=== PATIENT | male | born 1940 | race Caucasian/White ===

== ENCOUNTER 2019-07-30 07:37 | Day surgery (SDC) | payer MEDICARE, SELFPAY ==
--- NOTE | 2019-07-28 14:02 | P.OP_ITS ---
Operative Date/Time/Diagnoses Date of procedure: 07/30/19 Time of procedure: 10:45 Procedure & Clinicians Procedure: Preoperative diagnoses: 1. Left nuclear sclerotic and cortical cataract. 2. Recent Mohs procedure of left anabaptism. 3. 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 4. 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 Postoperative diagnoses: 1. Cataract removed by phacoemulsification with placement of posterior chamber intraocular lens. Procedure: Phacoemulsification with posterior chamber intraocular lens implant Surgeon: Claritza Dinero MD Complications: None Specimen: None Implant: ZCBOO+22.0 Blood loss: None Anesthesia: Retrobulbar with monitored standby Description of procedure: Patient presents with a complaint of decreased vision due to cataract which is affecting activities of daily living. He is having difficulty with driving. The patient wants surgery to improve vision. He has significant lower lid scar tissue from previous resection of basal cell carcinoma. He has also had a recent Mohs procedure for a 2nd lesion to the left anabaptism with sutures recently removed. Both are stable. The patient was taken to the operating room and given IV sedation. A retrobulbar block consisting of 6 cc of 2% xylocaine without epinephrine mixed half and half with 0.5% Marcaine with 1 cc of hyaluronidase added is placed between the medial and lateral 1/3 of the inferior orbital rim. The eye is manually massaged for 30 sec, prepped using Betadine solution, and draped in the usual sterile fashion. The area of recent scar tissue was draped out of the field. Temporal approach was made, a 1 mm side-port incision was made 90? from the proposed clear corneal incision position. Phenylephrine 1.5% mixed with 1% xylocaine 0.2 cc was placed into the anterior chamber. Viscoat followed by Healstacia was then placed. A 2.6 mm clear incision with a 2.6 mm blade was placed. A 360 degree capsulorrhexis style capsulotomy was then performed with a cystitome needle on a Mytonomyon. Hydrodelineation and hydrodissection were performed. The phacoemulsification unit is introduced, and sculpting notice used to groove the central lens. It is then removed in chopping mode. Epi nucleus is removed with epinuclear mode and irrigation aspiration was used to remove the peripheral cortex. The posterior capsule is polished. The intraocular lens is selected, inspected, power confirmed, and placed in the posterior chamber. The wound was stromally hydrated and tested for leaks, there was none and it was left sutureless. Vigamox 0.1 cc was placed into the anterior chamber. Kenalog 0.2 cc was placed in the superior subconjunctival space. A drop of antibiotic and was placed and the eye was patched and shielded. The patient was stable and returned to the recovery room in excellent condition. Dictated by: Claritza Dinero MD Copy to: [facility]
--- NOTE | 2019-07-28 14:02 | PM.PREOP ---
Pre-operative Note Interval Note History & Physical reviewed/Exam performed by Physician: Yes Changes to H&P: No H&P completed within 30 days and has changed as indicated here:: Had sutures removed from recent Mohs procedure left christianity. Still some irritation and tendency to ooze. Not in surgical field. We will follow-up with his Mohs surgeon.
[2019-07-30] MEDS: PROPARACAINE 0.5% OPHTH SOL 2 DROPS EYE-OP (10:05)
[2019-07-30] MEDS: CATARACT EYE COMPOUND (10 DROPS/SYRINGE) 3 DROPS EYE-OP (10:13)
[2019-07-30 10:15] VITALS: BP 150/79; PULSE 58; RESP 15; TEMP 36; O2SAT 98; BMI 25.8
--- NOTE | 2019-07-30 11:10 | SUR.OPER ---
Supine on eye stretcher, head on extension cradle secured with tape. Arms tucked at sides with blanket. Pillow under knees.
[2019-07-30] MEDS: PHENYLEPHRINE/LIDOCAINE VIAL (OR) 0.2 ML EYE-OP (11:12)
[2019-07-30] MEDS: ERYTHROMYCIN OPHTH 1 GM OINT 1 APPLIC EYE-LEFT (11:12)
[2019-07-30] MEDS: LIDOCAINE 2% 4 ML, BUPIVACAINE 0.5% (PF) 4 ML, HYALURONIDASE 150 UNIT INJ (11:12)
[2019-07-30] MEDS: TRIAMCINOLONE 50 MG/5 ML VIAL INJ (11:13)
[2019-07-30] MEDS: HYALURONATE SODIUM 10 MG/ML SYRINGE INJ (11:13)
[2019-07-30] MEDS: BALANCED SALT IRRIG SOLN NO.2 500 ML, EPINEPHrine 1 MG IRR (11:14)
[2019-07-30] MEDS: CHONDROIDTIN/SOD HYALURONATE 1.05 ML SYRINGE INTRAOCULA (11:14)
[2019-07-30 11:44] VITALS: BP 147/78; PULSE 58; RESP 15; TEMP 36.4; O2SAT 100
== END 2019-07-30 11:54 | disposition home or self-care (01) ==
LOC: OR 07:44
PROVIDERS: Family Provider Student in an Organized Health Care Education/Training Program; PCP Student in an Organized Health Care Education/Training Program; Visit Provider Ophthalmology
PROC: (CPT 66984; principal; 2019-07-30 10:45)
DX: H25.812 Combined forms of age-related cataract, left eye (principal); I10 Essential (primary) hypertension
CPT/HCPCS: 66984; J0171; J2704; J3301; J3470

== ENCOUNTER 2020-06-01 21:09 | Emergency (ER) | payer MEDICARE, SELFPAY ==
[2020-06-01 21:15] VITALS: BP 149/70; PULSE 83; RESP 14; TEMP 36.6; O2SAT 98; BMI 25.8
--- NOTE | 2020-06-01 21:44 | ED.SKABFB ---
HPI - Skin/Abscess/Foreign Bdy General Chief complaint: Skin/Abscess/Foreign Body Stated complaint: bleeding s/p surgery Time Seen by Provider: 06/01/20 21:15 Source: patient Mode of arrival: Ambulatory Limitations: no limitations History of Present Illness HPI narrative: 80M nonsmoker with history of HTN, hyperlipidemia, and skin cancer presents with his with the chief complaint of bleeding from a surgical site. Patient had a Mohs Procedure yesterday and today went to see an ENT down in [place] to have a paramedian forehead flap. The procedure went well and he was bandaged up and started having some bleeding on his way home. [place] profuse. He has a mild forehead pain, but denies dizziness, weakness, or lightheadedness. He denies fever or chills. He is otherwise well and free of complaint Related Data Home Medications Medication Instructions Recorded Confirmed amlodipine 10 mg PO DAILY 07/30/19 07/30/19 aspirin 81 mg PO DAILY 07/30/19 07/30/19 fluticasone propionate [Flonase 1 spray INTRANASAL DAILY 07/30/19 07/30/19 Allergy Relief] losartan 100 mg PO DAILY 07/30/19 07/30/19 simvastatin 10 mg PO DAILY 07/30/19 07/30/19 valacyclovir [Valtrex] 500 mg PO BID 07/30/19 07/30/19 Allergies Allergy/AdvReac Type Severity Reaction Status Date / Time No Known Drug Allergies Allergy Verified 06/01/20 21:18 Review of Systems Constitutional Constitutional: Denies chills, Denies fatigue, Denies fever(s), Denies frequent falls, Denies lethargy and Denies weakness Eyes Eyes: Denies change in vision, Denies eye discharge, Denies irritation and Denies loss of vision ENT Ears, Nose, Mouth, and Throat: Denies change in voice, Denies dizziness, Denies neck pain, Denies sore throat and Denies throat swelling Comments: bleeding Cardiovascular Cardiovascular: Denies chest pain, Denies irregular heart rhythm, Denies lightheadedness, Denies palpitations, Denies dyspnea, Denies dyspnea on exertion and Denies orthopnea Respiratory Respiratory: Denies cough, Denies dyspnea, Denies dyspnea on exertion and Denies wheezing Gastrointestinal Gastrointestinal: Denies abdominal pain, Denies change in bowel habits, Denies diarrhea, Denies nausea and Denies vomiting Musculoskeletal Musculoskeletal: Denies neck pain and Denies numbness Integumentary/Breasts Skin/Breast: Denies pruritus, Denies erythema, Denies rash and Denies wounds Neurologic Neurologic: Denies behavioral changes, Denies confusion, Denies dizziness, Denies frequent falls, Denies loss of vision, Denies numbness and Denies weakness Psychiatric Psychiatric: Denies anxiety, Denies behavioral changes, Denies confusion, Denies depression, Denies homicidal ideation and Denies suicidal ideation Endocrine Endocrine: Denies fatigue, Denies flushing and Denies palpitations Hematologic/Lymphatic Hematologic/Lymphatic: Denies easy bruising Allergic/Immunologic Allergic/Immunologic: Denies urticaria, Denies throat swelling and Denies wheezing Patient History Social History household members: spouse Smoking Status: Unknown if ever smoked Smoking Status: Unknown if ever smoked alcohol intake frequency: 0-2 drinks per day Substance Use Type: does not use Exam Narrative Exam Narrative: GENERAL: [80] year old patient appears stated age. Well-nourished, well-developed patient, in mild distress. Wrapped in gauze, actively bleeding. HEAD: Atraumatic. Normocephalic. EYES: Pupils equal round and reactive. Extraocular motions intact. No scleral icterus. No injection or drainage. ENT: Bright red blood soaked gauze. Head wrap removed. Vaseline gauze left in place, active bright red bleeding noted. Throat without erythema, tonsillar hypertrophy or exudate. Airway patent. NECK: Trachea midline. Non tender CARDIOVASCULAR: Regular rate and rhythm without murmurs, gallops, or rubs. RESPIRATORY: Clear to auscultation. Breath sounds equal bilaterally. No wheezes, rales, or rhonchi. GASTROINTESTINAL: Abdomen soft, non-tender, nondistended. EXTREMITIES: No edema or joint tenderness. BACK: Nontender without deformity or crepitance. No flank tenderness. NEURO: AOx3. SKIN: No rash or erythema of visible areas Initial Vital Signs Initial Vital Signs: Vital Signs Temperature 97.8 F 06/01/20 21:15 Pulse Rate 83 06/01/20 21:15 Respiratory Rate 14 06/01/20 21:15 Blood Pressure 149/70 H 08/11/20 21:15 Pulse Oximetry 98 06/01/20 21:15 Course Orders Ordered: ED Orders 06/01/20 21:40 Basic Metabolic Panel Stat Complete Blood Count AUTO DIFF Stat Discontinued Medications Lidocaine HCl (Xylocaine 1%) 10 ml INJ NOW ONE Stop: 06/01/20 23:00 Last Admin: 06/01/20 23:52 Dose: Not Given Documented by: EMILY Consultations Consultation #1: initial call to Dr. Gabriel (stoker installation mechanic for Dr. Fidel Evans) who has been in contact with Dr. Evans. Recommendation to attempt hemostasis with electrocautery. I asked if she would be willing to connect with local ENT, she says yes. I called Dr. Moscoso and he called her. The two conferred and developed a plan. He requests we get the cautery from the OR. Please see his note for details Vital Signs Vital signs: Vital Signs - 8 hr 06/01/20 21:15 06/01/20 23:15 06/01/20 23:30 Temperature 97.8 F Pulse Rate 83 82 78 Respiratory Rate 14 Blood Pressure 149/70 H 171/82 H Pulse Oximetry 98 96 96 06/02/20 00:00 Temperature 98.4 F Pulse Rate 78 Respiratory Rate 14 Blood Pressure 165/78 H Pulse Oximetry 97 MDM - Skin/Abscess/Foreign Bdy Lab Data Result diagrams: 06/01/20 21:40 06/01/20 21:40 Labs: Lab Results 06/01/20 06/01/20 Range/Units 21:40 21:40 WBC 10.9 (4.5-11.0) X10^3/uL RBC 4.36 L (4.5-5.9) X10^6/uL Hgb 13.8 (13.5-17.5) g/dL Hct 41.1 (41-53) % MCV 94.2 (80-100) fL MCH 31.6 (26-34) PG MCHC 33.5 (30-36) % RDW 13.9 (11.6-14.8) % Plt Count 225 (150-400) X10^3/uL Neut % (Auto) 90.6 H (50-75) % Lymph % (Auto) 8.0 L (25-40) % [place] % (Auto) 1.0 L (3-14) % Eos % (Auto) 0.0 L (2-4) % Baso % (Auto) 0.4 (0-2) % Neut # (Auto) 9900 H (7904-2181) /uL Lymph # (Auto) 900 L (1257-0345) /uL [place] # (Auto) 100 (0-900) /uL Eos # (Auto) 0 (0-450) /uL Baso # (Auto) 0 (0-100) /uL Sodium 135 L (137-145) mmol/L Potassium 4.2 (3.4-5.1) mmol/L Chloride 102 (98-107) mmol/L Carbon Dioxide 25 (22-32) mmol/L BUN 18 (9-20) mg/dL Creatinine 0.82 (0.66-1.25) mg/dL Estimated GFR > 60.0 (>60) mL/min BUN/Creatinine Ratio 22.0 (6-22) Glucose 218 H (80-110) mg/dL Calcium 9.4 (8.4-10.2) mg/dL Discharge Plan Departure Patient Disposition: Home Clinical Impression: Post surgical complication Qualifiers: Surgical complication system/body Area: [id number] Encounter type: initial encounter Postoperative shock type: unspecified shock type Discharge Date/Time: 06/02/20 00:23 Instructions: DI for Post-Surgical Bleeding Activity Restrictions/Additional Instructions: *You have been diagnosed with [postsurgical bleeding] *What to do: * continue to take medications as directed * per your discussion with Dr. Moscoso, please contact Dr. Evans 1st thing in the morning. If bleeding recurs please apply pressure as discussed with Dr. Moscoso, please return to the emergency department for any concerning symptoms otherwise Prescriptions: No Action simvastatin 10 mg Tablet 10 mg PO DAILY RF: 0 valacyclovir [Valtrex] 500 mg Tablet 500 mg PO BID RF: 0 amlodipine 10 mg Tablet 10 mg PO DAILY RF: 0 aspirin 81 mg Tablet,Chewable 81 mg PO DAILY RF: 0 losartan 100 mg Tablet 100 mg PO DAILY RF: 0 fluticasone propionate [Flonase Allergy Relief] 50 mcg/actuation [place],Suspension 1 spray INTRANASAL DAILY RF: 0 Referrals: Anibal Metzger MD [Primary Care Provider] -
[2020-06-01 21:50] LABS: Add Manual Diff / Slide Review NO; Basophils Absolute Auto 0 /uL (0-100); Basophils Percent Auto 0.4 % (0-2); Eosinophils Absolute Auto 0 /uL (0-450); Hematocrit 41.1 % (41-53); Hemoglobin 13.8 g/dL (13.5-17.5); Lymphocytes Absolute Auto 900 /uL (1100-4500); Mean Corpuscular HGB Conc 33.5 % (30-36); Mean Corpuscular Hemoglobin 31.6 PG (26-34); Mean Corpuscular Volume 94.2 fL (80-100); Monocytes Absolute Auto 100 /uL (0-900); Neutrophils Absolute Auto 9900 /uL (1500-7000); Neutrophils Percent Auto 90.6 % (50-75); Platelet Count 225 X10^3/uL (150-400); Red Blood Cell Count 4.36 X10^6/uL (4.5-5.9); Red Cell Distribution Width 13.9 % (11.6-14.8); White Blood Cell Count 10.9 X10^3/uL (4.5-11.0)
--- NOTE | 2020-06-01 21:58 | PC.NURSE ---
Pt had surgical procedure on nose today for mole removal/cartilage graft from left ear and also incision from forehead to nose for additional blood supply. Pt reports blood started dripping about twenty minutes after we left. It got worse after eating a sandwich. Dizziness present upon standing. Alert and oriented. Spouse at bedside.
[2020-06-01 22:01] LABS: Blood Urea Nitrogen 18 mg/dL (9-20); Calcium 9.4 mg/dL (8.4-10.2); Carbon Dioxide 25 mmol/L (22-32); Chloride 102 mmol/L (98-107); Estimated Glomerular Filt Rate > 60.0 mL/min (>60); Glucose 218 mg/dL (80-110); HEMOLYSIS 19 (0-50); Potassium 4.2 mmol/L (3.4-5.1); Sodium 135 mmol/L (137-145)
[2020-06-01 23:15] VITALS: PULSE 82; O2SAT 96
[2020-06-01 23:30] VITALS: BP 171/82; PULSE 78; O2SAT 96
[2020-06-01] MEDS: LIDOCAINE 1% (PF) 2 ML (23:52)
[2020-06-02] VITALS: BP 165/78; PULSE 78; PULSE 85; RESP 14; TEMP 36.9; O2SAT 97
--- NOTE | 2020-06-02 05:38 | CONS_ITS ---
DATE OF SERVICE: 06/01/2020 CHIEF COMPLAINT: Bleeding following paramedian forehead flap earlier today. SUBJECTIVE: An 80-year-old male on a baby aspirin presented to [facility] Emergency Room following paramedian forehead flap reconstruction of a left nasal Mohs defect following initial basal cell excision yesterday. Bleeding began this afternoon and has persisted despite consistent pressure. I was contacted by the ER physician, Dr. Thomas to discuss management options with the on-call physician for Dr. Fidel Evans, madison Gabriel. She recommended superficial cautery, possible Floseal if necessary. No other ENT complaints. PAST MEDICAL HISTORY: Reviewed on the nursing notes. MEDICATIONS: Reviewed on the nursing notes. ALLERGIES: REVIEWED ON THE NURSING NOTES. SOCIAL HISTORY: Reviewed on the nursing notes. REVIEW OF SYSTEMS: Reviewed on the nursing notes. FAMILY HISTORY: Reviewed on the nursing notes. OBJECTIVE: VS on chart GENERAL: A well-developed, well-nourished male with significant bloody gauze overlying the operative site. He is alert and oriented. HEENT: The forehead incision is intact without bleeding, covered by Xeroform gauze. The bloody gauze is partially removed from the inferior portion of the tubed exposedflap and the primary bleeding area appears to be near the distal medial edge, although the flap is viable and remains in place. Head is otherwise normocephalic, atraumatic. External ears are normal. External nose as above. PROCEDURE: Control postoperative hemorrhage following left paramedial forehead flap, reconstruction of Mohs defect LEFT nasal ala/sidewall. SURGEON: Ankur Moscoso MD DESCRIPTION OF PROCEDURE: Following verbal consent, over 60 minutes, the dressing was removed and bleeding sites primarily along the inferior tubed exposed portion of the graft were superficially cauterized with electrocautery on a setting of 10 to 15 after local anesthesia with 1 percent lidocaine. NO epinephrine was utilized. Bleeding persisted deep within the wound, primarily deep to the reconstruction site medially and I did not want to risk dehiscing the sutures in that area. I was unable to adequately access the area to cauterize without risk of inadvertent damage to surrounding structures; therefore, Floseal was infiltrated deeply into that area of the reconstruction and pressure was held for several minutes. Hemostasis was then obtained and the exposed pedicle was coated with a thin layer of Floseal then Surgicel then Xeroform gauze. A superficial dressing was then placed. He tolerated the procedure well without known complications. ASSESSMENT: Bleeding status post paramedial forehead slap reconstruction earlier today, for a left nasal ala/inferior nasal sidewall Mohs defect. PLAN: As discussed with the patient and via text with the on-call physician, Dr. Gabriel, the patient and his will stay locally in [facility] and contact the surgeon, Dr. Evans, in the morning. Hold pressure directly over the distal flap for any significant bleeding. The patient and his agree with the plan, understand, and are appreciative. Juan José Gaytan - CHINEDU/jonny/mal doc#: [id number]/job#: [id number] dd: 06/02/2020 00:16:00 dt: 06/02/2020 05:10:00 DICTATING MD/COPIES TO: Ankur Moscoso MD; Anibal Metzger MD; Fidel Evans MD from [facility] COPIES CHERYLE: KUSUM; ; Fidel Evans MD from [facility]
== END 2020-06-02 00:23 | disposition home or self-care (01) ==
PROVIDERS: Emergency Provider Emergency Medicine; Family Provider Student in an Organized Health Care Education/Training Program; PCP Student in an Organized Health Care Education/Training Program; Referring Provider Student in an Organized Health Care Education/Training Program
DX: T81.9XXA Unspecified complication of procedure, initial encounter (principal); I10 Essential (primary) hypertension; E78.5 Hyperlipidemia, unspecified
CPT/HCPCS: 36415; 80048; 85025; 99283

== ENCOUNTER → 2025-04-20 09:48 | Outpatient (CLI) | payer MEDICARE, SELFPAY ==
--- NOTE | 2025-04-20 09:50 | DI.NM.S_ITS ---
PROCEDURE: NM MEIR PERF SPECT REST & STR Rest and exercise myocardial perfusion SPECT with gated imaging and ejection fraction RADIOPHARMACEUTICAL: 27.5 mCi Tc-99m sestamibi IV at rest and 24.5 mCi Tc-99m sestamibi IV at peak exercise. A 2 day-protocol was performed. INDICATIONS: CUBA PQRS ATTESTATIONS: Measure 322 - Is this imaging test primarily performed on a low-risk surgery patient for preoperative evaluation within 30 days preceding their low-risk non-cardiac surgery? Low-risk surgery is defined as cardiac or myocardial infarction less than 1%, including (but not limited to) endoscopic procedures, superficial procedures, cataract surgery, and excisional breast surgery: Answer: No Measure 323 - Is this imaging test performed primarily for the monitoring of an asymptomatic patient who had percutaneous coronary intervention on the visit date or within 2 years of the visit date? Answer: No Measure 324 - Is this imaging test performed primarily for the initial detection and risk assessment on an asymptomatic, low coronary heart disease patient? Low CHD risk definition = clinicians should consider the maximum number of available patient factors used to estimate risk based on [place] (ATP III criteria), typically age, gender, diabetes, smoking status, and use of blood pressure medication, and integrate age appropriate estimates for missing elements, such as LDL or standard blood pressure. Answer: No TECHNIQUE: Radiopharmaceutical was injected at peak stress test, and also at rest. SPECT images were obtained. SPECT myocardial perfusion images were displayed in short axis, horizontal long axis, and vertical long axis views. Gated images were reviewed using [employer] software. COMPARISON: None. CARDIAC STRESS: A standard Gutierrez treadmill exercise tolerance test was performed by the patient under the supervision of an attending staff. The patient exercised for 6 minutes and 48 seconds; functional aerobic impairment (KALEY) is -57%. Hemodynamic data: There is normal blood pressure and heart rate response to exercise stress. Patient achieved 104% of maximum predicted heart rate at peak exercise. Symptoms: Patient denied chest pain during exercise. EKG: No diagnostic EKG changes of ischemia; no ectopy. FINDINGS: Raw data: There is good myocardial labeling by radiotracer. No significant motion artifacts. Qymn-yo-oxqxa ratio is not calculated (normal is less than 0.38 for sestamibi tracer, and less than 0.50 for thallium tracer). Left ventricle function: Gated images demonstrate normal left ventricle wall thickening. No segmental wall motion abnormality. No transient ischemic dilation; TID is 0.91 (normal less than 1.3). The left ventricle resting end-diastolic volume is 118 mL. Left ventricle stress ejection fraction is 69%; normal values are above 45%. Myocardial perfusion: Resting images had mild hypoperfusion in the basal to mid inferior segment. Stress images demonstrated worsening perfusion in the basal to mid inferior segment. Prone images demonstrated no perfusion defects. These findings most likely represents attenuation. IMPRESSION: 1. Negative exercise myocardial perfusion scan for ischemia and infarction. 2. Above average exercise tolerance. Dictated by: Jose Pope M.D. on 04/23/2025 at 16:54 Approved by: Jose Pope M.D. on 04/23/2025 at 16:56
== END ==
LOC: NUCM 09:49
PROVIDERS: Family Provider Student in an Organized Health Care Education/Training Program; PCP Student in an Organized Health Care Education/Training Program; Referring Provider Student in an Organized Health Care Education/Training Program; Visit Provider Student in an Organized Health Care Education/Training Program
DX: R06.09 Other forms of dyspnea (principal); R53.83 Other fatigue
CPT/HCPCS: 78452; 93017; A9502

== ENCOUNTER → 2025-07-07 10:53 | Outpatient (CLI) | payer MEDICARE, SELFPAY | LOC: RESP 10:54 | PROVIDERS: Family Provider Student in an Organized Health Care Education/Training Program; PCP Student in an Organized Health Care Education/Training Program; Referring Provider Student in an Organized Health Care Education/Training Program; Visit Provider Student in an Organized Health Care Education/Training Program | DX: R06.09 Other forms of dyspnea (principal); Z87.891 Personal history of nicotine dependence; J98.8 Other specified respiratory disorders; R94.2 Abnormal results of pulmonary function studies | CPT/HCPCS: 94060; 94726; 94729 ==